=== PATIENT | male | born 1985 | race Caucasian/White ===

== ENCOUNTER 2017-10-31 14:07 | Emergency (ER) | payer OTHER ==
[~2017-10-31] VITALS: Ht 188 cm; Wt 102.0 kg
[2017-10-31 14:19] VITALS: Ht 188 cm; Wt 102.0 kg
[2017-10-31 15:16] LABS: BASOPHIL % 0.3 % (0-2); PLATELET COUNT 215 x10^3mcL (130-400); RED CELL DISTRIBUTION WIDTH 12.6 % (11.5-14.5)
[2017-10-31 15:19] LABS: CALCIUM 8.4 mg/dL (8.5-10.1); CARBON DIOXIDE 29.7 mmol/L (21-32); CHLORIDE SERUM 106 mmol/L (98-107); CREATININE SERUM 1.1 mg/dL (0.7-1.3); GFR1 > 60 mL/min; GLUCOSE SERUM 98 mg/dL (74-106); POTASSIUM SERUM 3.5 mmol/L (3.5-5.1); SODIUM SERUM 141 mmol/L (136-145)
[2017-10-31 15:23] LABS: ALBUMIN 3.6 g/dL (3.4-5.0); ALKALINE PHOSPHATASE 58 U/L (46-116); ALT/SGPT 80 U/L (16-63); AST/SGOT 27 U/L (15-37); BILIRUBIN TOTAL 1.1 mg/dL (0.20-1.00); LIPASE 135 IU/L (73-393)
[2017-10-31 16:34] VITALS: BP 134/75
== END 2017-10-31 16:34 | disposition home or self-care (01) ==
LOC: ED 14:07
PROVIDERS: Emergency Medicine
DX: R10.31 Right lower quadrant pain (principal); R10.32 Left lower quadrant pain
CPT/HCPCS: J1200; J1885; J2550; J7030

== ENCOUNTER 2019-03-25 23:45 | Emergency (ER) | payer OTHER ==
[~2019-03-25] VITALS: Ht 182.9 cm; Wt 94.3 kg
[2019-03-25 23:48] VITALS: Ht 182.9 cm; Wt 94.3 kg
[2019-03-26 01:15] LABS: BASOPHIL % 0.2 % (0-2); PLATELET COUNT 268 x10^3mcL (130-400); RED CELL DISTRIBUTION WIDTH 13.3 % (11.5-14.5)
[2019-03-26 01:37] LABS: CALCIUM 8.5 mg/dL (8.5-10.1); CARBON DIOXIDE 32.4 mmol/L (21-32); CHLORIDE SERUM 100 mmol/L (98-107); GFR1 > 60 mL/min; GLUCOSE SERUM 141 mg/dL (74-106); POTASSIUM SERUM 3.8 mmol/L (3.5-5.1); SODIUM SERUM 139 mmol/L (136-145)
[2019-03-26 01:43] LABS: ALKALINE PHOSPHATASE 81 U/L (46-116); ALT/SGPT 22 U/L (16-63); AST/SGOT 18 U/L (15-37); CHOLESTEROL 147 mg/dL (<200); HDL CHOLESTEROL 52 mg/dL (40-60); TOTAL PROTEIN, SERUM 7.6 g/dL (6.4-8.2)
[2019-03-26 04:57] VITALS: BP 139/70
== END 2019-03-26 04:57 | disposition home or self-care (01) ==
LOC: ED 23:45
PROVIDERS: Emergency Medicine
DX: S06.0X1A Concussion with loss of consciousness of 30 minutes or less, initial encounter (principal); F11.10 Opioid abuse, uncomplicated; X58.XXXA Exposure to other specified factors, initial encounter; Y93.89 Activity, other specified; Y92.524 Gas station as the place of occurrence of the external cause; Y99.8 Other external cause status
CPT/HCPCS: 36415; Q0092; Q0162

== ENCOUNTER 2019-10-17 15:18 | Emergency (ER) | payer OTHER ==
[~2019-10-17] VITALS: Ht 188 cm; Wt 95.3 kg
[2019-10-17 15:27] VITALS: Ht 188 cm; Wt 95.3 kg
[2019-10-17 16:04] LABS: microscopic required? NO
[2019-10-17 16:20] LABS: BASOPHIL % 0.3 % (0-2); PLATELET COUNT 304 x10^3mcL (130-400); RED CELL DISTRIBUTION WIDTH 14.2 % (11.5-14.5)
[2019-10-17 16:32] LABS: CARBON DIOXIDE 29.7 mmol/L (21-32); CHLORIDE SERUM 104 mmol/L (98-107); CREATININE SERUM 1.1 mg/dL (0.7-1.3); GFR1 > 60 mL/min; GLUCOSE SERUM 110 mg/dL (74-106); POTASSIUM SERUM 3.3 mmol/L (3.5-5.1); SODIUM SERUM 143 mmol/L (136-145)
[2019-10-17 16:32] LABS: UA SPECIFIC GRAVITY >=1.030 (1.005-1.035); urine erythrocyte NEGATIVE (NEGATIVE)
[2019-10-17 16:56] LABS: ALBUMIN 3.9 g/dL (3.4-5.0); ALKALINE PHOSPHATASE 68 U/L (46-116); ALT/SGPT 35 U/L (16-63); AST/SGOT 14 U/L (15-37); BILIRUBIN TOTAL 1.6 mg/dL (0.20-1.00); FREE T4 0.97 ng/dL (0.76-1.46); LIPASE 220 IU/L (73-393); TOTAL PROTEIN, SERUM 7.7 g/dL (6.4-8.2)
[2019-10-17 17:00] LABS: AMPHETAMINE QUAL UR NONE DETECTED (See below)
[2019-10-17 17:28] VITALS: BP 147/103
== END 2019-10-17 17:32 | disposition home or self-care (01) ==
LOC: ED 15:18
PROVIDERS: Emergency Medicine
DX: R53.1 Weakness (principal); R07.89 Other chest pain; R11.0 Nausea; R63.0 Anorexia; R53.83 Other fatigue; R10.84 Generalized abdominal pain; R19.7 Diarrhea, unspecified; F11.10 Opioid abuse, uncomplicated; F17.210 Nicotine dependence, cigarettes, uncomplicated
CPT/HCPCS: 84439; J1885; J2405; Q0092